=== PATIENT | female | born 1930 ===

== ENCOUNTER 2017-09-30 07:49 | Outpatient (CLI) | payer OTHER ==
[~2017-09-30] VITALS: Ht 167.6 cm; Wt 72.6 kg
== END 2017-09-30 08:15 | disposition home or self-care (01) ==
LOC: OFIC 805 07:49
DX: H61.21 Impacted cerumen, right ear (principal); H90.3 Sensorineural hearing loss, bilateral; J39.2 Other diseases of pharynx; R22.1 Localized swelling, mass and lump, neck

== ENCOUNTER 2017-10-31 09:46 | Outpatient (CLI) | payer OTHER | END 2017-10-31 10:00 | disposition home or self-care (01) | LOC: OFIC 805 09:46 | DX: H90.3 Sensorineural hearing loss, bilateral (principal); R22.1 Localized swelling, mass and lump, neck ==